=== PATIENT | male | born 1985 | race Caucasian/White ===

== ENCOUNTER 2016-04-01 12:34 | Inpatient (IN) | payer SELFPAY ==
[2016-04-01 14:58] VITALS: BMI 30.5
--- NOTE | 2016-04-01 16:14 | HP ---
COWS - Scale Resting Pulse: 1= [place] 81-100 Sweatin= Chills/Flushing Restless Observation: 3= Extraneous Movement Pupil Size: 2= Moderately Dilated Bone or Joint Aches: 4=Acute Joint/Muscle Pain Runny Nose/ Eye Tearin= Nasal Congestion GI Upset > 30mins: 1= Stomach Cramp Tremor Observation: 1= Tremor [place], Not Seen Yawning Observation: 1= 1-2x During Session Anxiety or Irritability: 2=Irritable/Anxious Goose Flesh Skin: 0=Smooth Skin COWS Score: 17 Admission ROS S - HPI Chief Complaint: DETOX TX FOR HEROIN DEPENDENCE Allergies/Adverse Reactions: Allergies Allergy/AdvReac Type Severity Reaction Status Date / Time No Known Allergies Allergy Verified 04/01/16 15:50 History of Present Illness: 30 Y/O MALE WITH A HX OF HEROIN AND MARIJUANA DEPENDENCE SEEKING DETOX [place]. Exam Limitations: No Limitations - Ebola screening Have you traveled outside of the country in the last 21 days: No Have you had contact with anyone from an Ebola affected area: No Have you been sick,other than usual withdrawal symptoms: No Do you have a fever: No - Review of Systems Constitutional: Chills, Loss of Appetite, Night Sweats, Changes in sleep EENT: reports: Tearing, Nose Congestion Respiratory: reports: No Symptoms reported Cardiac: reports: Lightheadedness GI: reports: Constipated, Diarrhea, Nausea, Vomiting, Abdominal cramping : reports: No Symptoms Reported Musculoskeletal: reports: Back Pain, Joint Pain, Muscle Pain (AND CRAMPS) Integumentary: reports: No Symptoms Reported Neuro: reports: Tremors, Unsteady Gait, Dizziness Endocrine: reports: No Symptoms Reported Hematology: reports: No Symptoms Reported Psychiatric: reports: Orientated x3, Anxious, Depressed (AND ANXIETY DUE TO WITHDRAWAL SX) Other Systems: Reviewed and Negative Patient History - Patient Medical History Hx Anemia: No Hx Asthma: Yes Hx Chronic Obstructive Pulmonary Disease (COPD): No Hx Cancer: No Hx Cardiac Disorders: No Hx Congestive Heart Failure: No Hx Hypertension: No Hx Hypercholesterolemia: No Hx Pacemaker: No HX Cerebrovascular Accident: No Hx Seizures: No Hx Dementia: No Hx Diabetes: No Hx Gastrointestinal Disorders: No Hx Liver Disease: No Hx Genitourinary Disorders: No Hx Sexually Transmitted Disorders: No Hx Renal Disease (ESRD): No Hx Thyroid Disease: No Hx Human Immunodeficiency Virus (HIV): No (NEGATIVE HX) Hx Hepatitis C: No Hx Depression: Yes Hx Suicide Attempt: No (DENIES) Hx Schizophrenia: No - Patient Surgical History Past Surgical History: No Hx Neurologic Surgery: No Hx Cataract Extraction: No Hx Cardiac Surgery: No Hx Lung Surgery: No Hx Breast Surgery: No Hx Breast Biopsy: No Hx Abdominal Surgery: No Hx Appendectomy: No Hx Cholecystectomy: No Hx Genitourinary Surgery: No Hx Section: No Hx Orthopedic Surgery: Yes (right hand fx. 2016) Hx Hysterectomy: No Anesthesia Reaction: No - PPD History Previous Implant?: Yes Documented Results: Negative w/o proof Implanted On Prior R Admission?: No - Reproductive History Patient : No - Smoking Cessation Smoking history: Current every day smoker Have you smoked in the past 12 months: Yes Aproximately how many cigarettes per day: 20 Hx Chewing Tobacco Use: No Initiated information on smoking cessation: No - Substance & Tx. History Hx Alcohol Use: No (DENIES) Hx Substance Use: Yes (HEROIN/MARIJUANA) Substance Use Type: Heroin, Marijuana Hx Substance Use Treatment: No (NEVER IN TREATMENT. FIRST TIME IN TREATMENT.) - Substances Abused Heroin Route: Inhalation Frequency: Daily Amount used: $300 Age of first use: 29 Date of Last Use: 03/31/16 Marijuana/Hashish Route: Smoking Frequency: 1-2 times per week Amount used: LESS THAN 1 GM Age of first use: 15 Date of Last Use: 03/30/16 Family Disease History - Family Disease History Family Disease History: Diabetes: Grandparent (GF/GM-), Father Admission Physical Exam [facility] - Vital Signs Vital Signs: Vital Signs - 24 hr 04/01/16 14:57 Temperature 98 F Pulse Rate 84 Respiratory 20 Rate Blood Pressure 100/60 - Physical General Appearance: Yes: Moderate Distress, Irritable, Anxious HEENTM: Yes: EOMI, Normocephalic, HILL, Pharynx Normal Respiratory: Yes: Chest Non-Tender, Lungs Clear, Normal Breath Sounds, No Respiratory Distress Neck: Yes: Supple, Trachea in good position Breast: Yes: Breast Exam Deferred Cardiology: Yes: Regular Rhythm, Regular Rate, S1, S2 Abdominal: Yes: Normal Bowel Sounds, Non Tender, Soft Genitourinary: Yes: Other (N/C) Back: Yes: Within Normal Limits Musculoskeletal: Yes: full range of Motion, Gait Steady 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 NML intact, Fully Oriented, Alert, Motor Strength 5/5 Integumentary: Yes: Dry, Warm, Rash (FACIAL ACNE) Lymphatic: Yes: Within Normal Limits - Diagnostic (1) Uncomplicated opioid dependence Current Visit: Yes Status: Acute (2) Cannabis dependence, uncomplicated Current Visit: Yes Status: Acute (3) Asthma Current Visit: Yes Status: Chronic Qualifiers: Asthma severity: mild intermittent Asthma complication type: uncomplicated Qualified Code(s): J45.20 - Mild intermittent asthma, uncomplicated Cleared for Admission [facility] - Detox or Rehab [facility] Level of Care: Medically Managed Detox Regimen/Protocol: Methadone [facility] Breath Alcohol Content Breath Alcohol Content: 0 Urine Drug Screen - Results Drug Screen Negative: No Urine Drug Screen Results: THC-Marijuana, OPI-Opiates, BZO-Benzodiazepines
[2016-04-01] MEDS ORDERED: guaiFENesin/D-METHORPHAN HB 10 ML UNIT-DOSE CUPS PO PRN (16:24)
[2016-04-01] MEDS ORDERED: NICOTINE POLACRILEX 4 MG GUM BC PRN (16:24)
[2016-04-01] MEDS ORDERED: MAGNESIUM CITRATE 300 ML BOTTLE PO PRN (16:24)
[2016-04-01] MEDS ORDERED: P-EPHED 60MG/TRIPROLIDI 2.5MG TABLET PO PRN (16:24)
[2016-04-01] MEDS ORDERED: MAG HYDROX/AL HYDROX/SIMETH 30 ML UNIT-DOSE CUP PO PRN (16:24)
[2016-04-01] MEDS ORDERED: LOPERAMIDE HCL 2 MG CAPSULE PO PRN (16:24)
[2016-04-01] MEDS ORDERED: MENTHOL/PHENOL 1 EACH UD MM PRN (16:24)
[2016-04-01] MEDS ORDERED: hydrOXYzine PAMOATE 25 MG CAPSULE (FP) PO PRN (16:24)
[2016-04-01] MEDS ORDERED: MAGNESIUM HYDROX 2400MG/30ML ORAL SUSPENSION 30 ML CUP PO PRN (16:24)
[2016-04-01] MEDS ORDERED: IBUPROFEN 400 MG TABLET (FP) PO PRN (16:24)
[2016-04-01] MEDS ORDERED: ACETAMINOPHEN 325 MG TABLET (FP) PO PRN (16:24)
[2016-04-01] MEDS ORDERED: METHADONE HCL 10 MG TABLET (FOR DETOX USE ONLY) PO ONE ×2 (17:00→23:00)
[2016-04-01] MEDS ORDERED: ALBUTEROL SO4 6.7 GM HFA INHALER IH PRN (17:10)
[2016-04-01] MEDS: diazePAM 5 MG TABLET PO PRN ×2 (18:25→22:19)
[2016-04-01] MEDS: NICOTINE 21 MG/24 HOURS TOPICAL PATCH TD SCH (18:36)
[2016-04-01 20:08] LABS: URINE APPEARANCE CLEAR; URINE BILIRUBIN NEGATIVE (NEGATIVE); URINE BLOOD NEGATIVE (NEGATIVE); URINE COLOR YELLOW; URINE GLUCOSE (UA) NEGATIVE (NEGATIVE); URINE KETONE NEGATIVE (NEGATIVE); URINE LEUK ESTERASE NEGATIVE (NEGATIVE); URINE NITRITE NEGATIVE (NEGATIVE); URINE PROTEIN NEGATIVE (NEGATIVE); URINE UROBILINOGEN 4.0 E.U/dl E.U./dl (0.2-1.0)
[2016-04-01] MEDS: THIAMINE HCL 100 MG TABLET (FP) PO SCH (22:18)
[2016-04-01] MEDS: diphenhydrAMINE HCL 50 MG CAPSULE PO PRN (22:19)
[2016-04-02] MEDS: diazePAM 5 MG TABLET PO PRN ×4 (06:03→22:14)
[2016-04-02] MEDS ORDERED: METHADONE HCL 10 MG TABLET (FOR DETOX USE ONLY) PO ONE (10:00)
[2016-04-02 10:16] LABS: MCHC 33.9 g/dl (32.0-35.9); MEAN CELL VOLUME 85.5 fl (80-96); MEAN PLT VOLUME 8.6 fl (7.5-11.1); PLATELET COUNT 242 K/MM3 (134-434); RDW 12.9 % (11.9-15.9)
[2016-04-02] MEDS: PRENATAL VITAMINS W/ FOLIC ACID TABLET (FP) PO SCH (10:18)
[2016-04-02] MEDS: NICOTINE 21 MG/24 HOURS TOPICAL PATCH TD SCH (10:19)
--- NOTE | 2016-04-02 10:26 | PN ---
[facility] COWS - Scale Resting Pulse: 1= [place] 81-100 Sweatin=Flushed/Facial Moisture Restless Observation: 1= Difficult to Sit Still Pupil Size: 0= Normal to Room Light Bone or Joint Aches: 2= Severe Diffuse Aches Runny Nose/ Eye Tearin= Runny Nose/Eyes GI Upset > 30mins: 2= Nausea/Diarrhea Tremor Observation of Outstretched Hands: 2= Slight Tremor Visible Yawning Observation: 2= >3x During Session Anxiety or Irritability: 2=Irritable/Anxious Goose Flesh Skin: 0=Smooth Skin COWS Score: 16 [facility] Progress Note (SOAP) Subjective: shakes sweats irritable body aches interrupted sleep Objective: 04/02/16 10:28 Vital Signs Temperature 97.3 F L 04/02/16 09:34 Pulse Rate 84 04/02/16 09:34 Respiratory Rate 20 04/02/16 09:34 Blood Pressure 118/75 04/02/16 09:34 O2 Sat by Pulse Oximetry (%) Laboratory Tests 04/01/16 04/02/16 19:00 05:50 WBC 9.0 RBC 5.18 Hgb 15.0 D Hct 44.3 MCV 85.5 MCHC 33.9 RDW 12.9 Plt Count 242 MPV 8.6 Urine Color Yellow Urine Appearance Clear Urine pH 5.0 Ur Specific [place] 1.026 Urine Protein Negative Urine Glucose (UA) Negative Urine Ketones Negative Urine Blood Negative Urine Nitrite Negative Urine Bilirubin Negative Urine Urobilinogen 4.0 e.u/dl Ur Leukocyte Esterase Negative labs pending awake/alert ambulating no acute distress Assessment: 04/02/16 10:29 withdrawal sx Plan: continue detox increase fluids labs pending
[2016-04-02 11:10] LABS: ALBUMIN 4.1 g/dl (3.4-5.0); ALK PHOS 89 U/L (45-117); ANION GAP 10 (8-16); BILIRUBIN,TOTAL 0.6 mg/dL (0.2-1.0); CALCIUM 8.7 mg/dL (8.5-10.1); CO2 26 mmol/L (21-32); CREATININE 1.1 mg/dL (0.7-1.3); GLUCOSE,RANDOM 132 mg/dL (74-106); SGOT/AST 14 U/L (15-37); SGPT/ALT 29 U/L (12-78); TOT PROT 7.2 g/dl (6.4-8.2)
--- NOTE | 2016-04-02 17:11 | CONSULT ---
[facility] Psychiatric Consult - Data Date of interview: 04/02/16 Admission source: [facility] Identifying data: First admission to [facility] for this 30 y/o male, from [place] ancestry,seeking detox treatment on for heroin and marijuana dependence.Patient is single without children,domiciled and employed. Substance Abuse History: Smoking Cessation. Smoking history: Current every day smoker. Have you smoked in the past 12 months: Yes. Aproximately how many cigarettes per day: 20. Hx Chewing Tobacco Use: No. Initiated information on smoking cessation: No. - Substance & Tx. History. Hx Alcohol Use: No (DENIES) . Hx Substance Use: Yes (HEROIN/MARIJUANA). Substance Use Type: Heroin, Marijuana. Hx Substance Use Treatment: No (NEVER IN TREATMENT. FIRST TIME IN TREATMENT.). - Substances Abused. Heroin. Route: Inhalation. Frequency: Daily. Amount used: $300. Age of first use: 29. Date of Last Use: 03/31/16. Marijuana/Hashish. Route: Smoking. Frequency: 1-2 times per week. Amount used: LESS THAN 1 GM. Age of first use: 15. Date of Last Use: 03/30/16. Confirmed by patient. Medical History: Patient endorses good general health.Past history of right hand fracture (2016). Psychiatric History: Patient denies. Physical/Sexual Abuse/Trauma History: Patient denies. Additional Comment: Urine Drug Screen Results: THC-Marijuana, OPI-Opiates, BZO- Benzodiazepines.Noted. Mental Status Exam - Mental Status Exam Alert and Oriented to: Time, Place, Person Cognitive Function: Good Patient Appearance: Well Groomed Mood: Hopeful, Euthymic Affect: Appropriate, Normal Range Patient Behavior: Appropriate, Cooperative Speech Pattern: Clear, Appropriate Voice Loudness: Normal Thought Process: Intact, Goal Oriented Thought Disorder: Not Present Hallucinations: Denies Suicidal Ideation: Denies Homicidal Ideation: Denies Insight/Judgement: Poor Sleep: Well Appetite: Good Muscle strength/Tone: Normal Psychiatric Findings - Problem List ([place] 1, 2,3) (1) Cannabis dependence, uncomplicated Current Visit: Yes Status: Acute (2) Uncomplicated opioid dependence Current Visit: Yes Status: Acute (3) Nicotine dependence Current Visit: Yes Status: Acute (4) Asthma Current Visit: Yes Status: Chronic Qualifiers: Asthma severity: mild intermittent Asthma complication type: uncomplicated Qualified Code(s): J45.20 - Mild intermittent asthma, uncomplicated - Initial Treatment Plan Initial Treatment Plan: Psychoeducation.Detoxification in progress.Observation.
[2016-04-02] MEDS: THIAMINE HCL 100 MG TABLET (FP) PO SCH (22:14)
[2016-04-02] MEDS: diphenhydrAMINE HCL 50 MG CAPSULE PO PRN (22:14)
[2016-04-03] MEDS ORDERED: METHADONE HCL 5 MG TABLET (FOR DETOX USE ONLY) PO ONE (10:00)
--- NOTE | 2016-04-03 10:04 | PN ---
S CIWA - CIWA Score Nausea/Vomitin Muscle Tremors: 3 Anxiety: 3 Agitation: 3 Paroxysmal Sweats: 3 Orientation: 0-Oriented Tacttile Disturbances: 1-Very Mild Itch/Numbness Auditory Disturbances: 0-None Visual Disturbances: 0-None Headache: 0-None Present CIWA-Ar Total Score: 16 [facility] Progress Note (SOAP) Subjective: interrupted sleep, sweats anxiety,decreased appetite Objective: 04/03/16 10:03 Vital Signs Temperature 97.2 F L 04/03/16 09:33 Pulse Rate 88 04/03/16 09:33 Respiratory Rate 18 04/03/16 09:33 Blood Pressure 117/78 04/03/16 09:33 O2 Sat by Pulse Oximetry (%) Laboratory Tests 04/01/16 04/02/16 04/02/16 19:00 05:50 05:50 WBC 9.0 RBC 5.18 Hgb 15.0 D Hct 44.3 MCV 85.5 MCHC 33.9 RDW 12.9 Plt Count 242 MPV 8.6 Sodium 138 Potassium 4.2 Chloride 102 Carbon Dioxide 26 Anion Gap 10 BUN 13 Creatinine 1.1 Creat Clearance w eGFR > 60 Random Glucose 132 H Calcium 8.7 Total Bilirubin 0.6 AST 14 L ALT 29 D Alkaline Phosphatase 89 D Total Protein 7.2 Albumin 4.1 Urine Color Yellow Urine Appearance Clear Urine pH 5.0 Ur Specific [place] 1.026 Urine Protein Negative Urine Glucose (UA) Negative Urine Ketones Negative Urine Blood Negative Urine Nitrite Negative Urine Bilirubin Negative Urine Urobilinogen 4.0 e.u/dl Ur Leukocyte Esterase Negative RPR Titer 04/02/16 05:50 WBC RBC Hgb Hct MCV MCHC RDW Plt Count MPV Sodium Potassium Chloride Carbon Dioxide Anion Gap BUN Creatinine Creat Clearance w eGFR Random Glucose Calcium Total Bilirubin AST ALT Alkaline Phosphatase Total Protein Albumin Urine Color Urine Appearance Urine pH Ur Specific [place] Urine Protein Urine Glucose (UA) Urine Ketones Urine Blood Urine Nitrite Urine Bilirubin Urine Urobilinogen Ur Leukocyte Esterase RPR Titer Nonreactive 04/03/16 14:31 pt aox3 in nad lying in bed excoriations on nose 04/03/16 14:34 Assessment: 04/03/16 10:04 withdrawl sxls 04/03/16 14:34 anxiety Plan: cont. detx increase fluids ensure bid vistaril prn
[2016-04-03] MEDS: diazePAM 5 MG TABLET PO PRN ×4 (10:19→23:07)
[2016-04-03] MEDS: NICOTINE 21 MG/24 HOURS TOPICAL PATCH TD SCH (10:19)
[2016-04-03] MEDS: PRENATAL VITAMINS W/ FOLIC ACID TABLET (FP) PO SCH (10:19)
--- NOTE | 2016-04-03 12:31 | EKG ---
Test Reason : Blood Pressure : / mmHG Vent. Rate : 074 BPM Atrial Rate : 074 BPM P-R Int : 166 ms QRS Dur : 094 ms QT Int : 378 ms P-R-T Axes : 031 023 021 degrees QTc Int : 419 ms NORMAL SINUS RHYTHM NORMAL ECG WHEN COMPARED WITH ECG OF 01-JUN-2015 16:40, NO SIGNIFICANT CHANGE WAS FOUND Confirmed by CARL PIERRE MD ([id number]) on 04/03/2016 12:31:34 PM Referred By: Confirmed By:CARL PIERRE MD
[2016-04-03] MEDS: BACITRACIN 0.9 GM PACKET TP SCH (22:10)
[2016-04-03] MEDS: THIAMINE HCL 100 MG TABLET (FP) PO SCH (22:10)
[2016-04-03] MEDS: diphenhydrAMINE HCL 50 MG CAPSULE PO PRN (22:11)
[2016-04-04 09:56] VITALS: BP 104/66; PULSE 83; TEMP 97
[2016-04-04] MEDS ORDERED: METHADONE HCL 5 MG TABLET (FOR DETOX USE ONLY) PO ONE (10:00)
[2016-04-04] MEDS: PRENATAL VITAMINS W/ FOLIC ACID TABLET (FP) PO SCH (10:20)
[2016-04-04] MEDS: BACITRACIN 0.9 GM PACKET TP SCH (10:20)
[2016-04-04] MEDS: diazePAM 5 MG TABLET PO PRN (10:20)
[2016-04-04] MEDS: NICOTINE 21 MG/24 HOURS TOPICAL PATCH TD SCH (10:20)
[2016-04-05] MEDS ORDERED: METHADONE HCL 10 MG TABLET (FOR DETOX USE ONLY) PO ONE (10:00)
[2016-04-06] MEDS ORDERED: METHADONE HCL 5 MG TABLET (FOR DETOX USE ONLY) PO ONE (06:00)
== END 2016-04-04 10:55 | disposition left against medical advice (07) | DRG 770 ==
LOC: YASAS 12:34 → Y6N 16:23
PROVIDERS: ADMIT Internal Medicine; ATTEND Internal Medicine
PROC: HZ2ZZZZ Detoxification Services for Substance Abuse Treatment (ICD-10-PCS; principal; 2016-04-01)
DX: F11.23 Opioid dependence with withdrawal (principal); F12.20 Cannabis dependence, uncomplicated; F17.210 Nicotine dependence, cigarettes, uncomplicated; F41.9 Anxiety disorder, unspecified; J45.20 Mild intermittent asthma, uncomplicated
CPT/HCPCS: 36415; 80053; 81003; 85027; 86593; 93005; 93010